=== PATIENT | male | born 1980 | race Caucasian/White ===

== ENCOUNTER 2017-01-01 20:42 | Emergency (ER) | payer BC ==
[~2017-01-01] VITALS: Ht 188 cm; Wt 98.9 kg
[2017-01-01 20:44] VITALS: BP_SYST 146
[2017-01-01] MEDS ORDERED: NACL 0.9% 1,000 ML IV ONE (21:02)
[2017-01-01] MEDS ORDERED: KETOROLAC TROMETHAMINE 30 MG VIAL IVP ONE (21:15)
[2017-01-01 21:27] LABS: EOSINOPHILS # (AUTO) 0.4 K/uL (0.0-0.4); EOSINOPHILS % (AUTO) 4.4 % (0.0-4.0); HEMATOCRIT 50.5 % (36-54); HEMOGLOBIN 16.6 g/dL (14.0-18.0); LYMPHOCYTES # (AUTO) 2.6 K/uL (1.0-5.5); LYMPHOCYTES % (AUTO) 31.2 % (20.5-51.5); MEAN CORPUSCULAR HEMOGLOBIN 29 pg (27-31); MEAN CORPUSCULAR HGB CONC 33 % (32-36); MEAN CORPUSCULAR VOLUME 88 fL (79.0-98.0); MONOCYTES # (AUTO) 0.7 K/uL (0.0-1.0); PLATELET COUNT (AUTO) 331 K/uL (130-430); RED BLOOD CELL COUNT(AUTO) 5.72 MIL/uL (4.2-6.2); RED CELL DISTRIBUTION WIDTH 12.3 % (9.0-15.0); WHITE BLOOD COUNT (AUTO) 8.3 K/uL (4.8-10.8)
[2017-01-01 21:33] LABS: BASOPHILS % (AUTO) 0.9 % (0.0-2.0); NEUTROPHILS # (AUTO) 4.6 K/uL (1.8-7.7); NEUTROPHILS % (AUTO) 54.5 % (40.0-70.0)
[2017-01-01 21:35] LABS: CALCIUM 9.2 mg/dL (8.4-11.0); CREATININE 1.1 mg/dL (0.55-1.30)
[2017-01-01 21:40] LABS: ALBUMIN 4.2 g/dL (3.4-4.8); TOTAL BILIRUBIN 0.6 mg/dL (0.0-1.0); TOTAL PROTEIN, SERUM 7.8 g/dL (6.4-8.3)
[2017-01-01 22:05] VITALS: BP_SYST 141
== END 2017-01-01 22:05 | disposition home or self-care (01) ==
LOC: SED 20:42
DX: R10.32 Left lower quadrant pain (principal); R19.7 Diarrhea, unspecified; R03.0 Elevated blood-pressure reading, without diagnosis of hypertension
CPT/HCPCS: 36415; 74176; 80053; 85025; 96361; 96374; 99285; J1885; J7030